=== PATIENT | female | born 1980 | race Caucasian/White ===

== ENCOUNTER 2019-10-19 14:01 | Emergency (ER) | payer OTHER ==
[~2019-10-19] VITALS: Ht 167.6 cm; Wt 85.0 kg
[~2019-10-19 14:01] MED LIST: ACET-1600 PO; ACET160T11 PO; ALBU8.5H5 INH; AMOX-291 PO; CEFU500T PO; DEXT118L3 PO; DIPH25CA61 PO; GUAI5LIQ PO; IBUP-1223 PO; LACT1CAP35 PO; LORA1TAB46 PO; ONDA4TAB10 PO; OXYC-302 PO
--- NOTE | 2019-10-19 14:07 | NUR ---
NIL X 1 @[id number]
--- NOTE | 2019-10-19 14:09 | NUR ---
PT TO TRAUMA 2 FROM TRIAGE. CHANGING INTO A GOWN.
--- NOTE | 2019-10-19 14:14 | NUR ---
MD IS AT THE BEDSIDE TO CONSULT.
[2019-10-19] MEDS ORDERED: SODIUM CHLORIDE FLUSH 10ML SYR IVF ONE (14:30)
[2019-10-19 15:05] LABS: BASOPHILS # (AUTO) 0.03 x10^3/uL (0-0.1); BASOPHILS % (AUTO) 0 % (0-1); EOSINOPHILS # (AUTO) 0.08 x10^3/uL (0-0.4); EOSINOPHILS % (AUTO) 1 % (1-7); LYMPHOCYTES % (AUTO) 21 % (22-44); MD NO; MEAN CORPUSCULAR HEMOGLOBIN 30.6 pg (27.0-34.8); MEAN CORPUSCULAR HGB CONC 33.5 g/dL (32.4-35.8); MEAN CORPUSCULAR VOLUME 91.3 fL (80-100); MEAN PLATELET VOLUME 6.7 fL (7.4-10.4); MONOCYTES # (AUTO) 0.64 x10^3/uL (0.2-0.8); MONOCYTES % (AUTO) 7 % (2-9); NEUTROPHILS # (AUTO) 6.73 x10^3/uL (1.8-6.8); NEUTROPHILS % (AUTO) 71 % (42-75); PLATELET COUNT 425 x10^3/uL (130-400); RED BLOOD COUNT 4.44 x10^6/uL (3.82-5.3)
[2019-10-19 15:17] LABS: ALBUMIN 3.3 g/dL (3.4-5.0); ANION GAP 7 mmol/L (5-15); CALCIUM 8.7 mg/dL (8.5-10.1); CHLORIDE 109 mmol/L (98-107); CREATININE 0.66 mg/dL (0.55-1.02)
--- NOTE | 2019-10-19 15:35 | NUR ---
MICHAEL (RN) IS ASSUMING CARE OF THIS PT WHILE I ENJOY A LUNCHBREAK. SBAR REPORT WAS EXCHANGED AT THE BEDSIDE.
--- NOTE | 2019-10-19 16:18 | NUR ---
ATTEMPTED TO CONTACT CT IN REGARD TO DELAY IN STUDY. NO ANSWER AT THIS TIME.
[2019-10-19] MEDS ORDERED: OMNIPAQUE 350 MG/ML, 100ML BOTTLE ONE (16:42)
--- NOTE | 2019-10-19 16:48 | NUR ---
PT TO AND FROM NM W TECH. SHE TOLERATED THE STUDY WELL.
[2019-10-19] MEDS ORDERED: KETOROLAC 30 MG/1 ML ONE (16:56)
[2019-10-19] MEDS ORDERED: KETOROLAC 30 MG/1 ML IVPush ONE (17:00)
[2019-10-19 17:23] VITALS: BP 123/78
== END 2019-10-19 17:39 | disposition home or self-care (01) ==
LOC: ED 17:33
DX: E05.00 Thyrotoxicosis with diffuse goiter without thyrotoxic crisis or storm (principal); M54.2 Cervicalgia; J45.909 Unspecified asthma, uncomplicated; R00.0 Tachycardia, unspecified
CPT/HCPCS: 36415; 70491; 80048; 82040; 84439; 84443; 84481; 85025; 93005; 96374; 99285; J1885; Q9967

== ENCOUNTER 2019-10-30 16:13 | Emergency (ER) | payer OTHER ==
[~2019-10-30] VITALS: Ht 167.6 cm; Wt 91.4 kg
--- NOTE | 2019-10-30 17:18 | NUR ---
No answer from lobby.
--- NOTE | 2019-10-30 17:47 | NUR ---
Pt to room from lobby.
--- NOTE | 2019-10-30 17:58 | NUR ---
WAS RECENTLY DIAGNOSED WITH HYPERTHYROIDISM. MY HR AND BP HAS BEEN HIGH. AT HOME LAST NIGHT HR-110 AND BP 162/115 DESPITE NEWLY PRESRIBED PROPANOLOL WAITING TO SEE SUPERVISOR PAINTING SHIPYARD
--- NOTE | 2019-10-30 18:14 | NUR ---
CXR AT BEDSIDE UA SENT ECG OBTAINED
--- NOTE | 2019-10-30 18:20 | NUR ---
METOPROLOL SUCCINATE (ER) REQUESTED FROM PHARMACY
[2019-10-30 18:22] LABS: HCG UR SG 1.019 (1.003-1.030); MICROSCOPIC NOT IND
[2019-10-30] MEDS ORDERED: METOPROLOL SUCCINATE 25 MG TAB.ER.24H PO ONE (18:30)
--- NOTE | 2019-10-30 18:40 | NUR ---
MEDICATED PER EMAR VSS ON QA REVIEWER
[2019-10-30 19:27] VITALS: BP 127/88
== END 2019-10-30 19:53 | disposition home or self-care (01) ==
LOC: ED 19:15
DX: R00.0 Tachycardia, unspecified (principal); E03.9 Hypothyroidism, unspecified; R07.9 Chest pain, unspecified
CPT/HCPCS: 71045; 81003; 81025; 93005; 99285

== ENCOUNTER → 2019-11-17 | Outpatient (CLI) | payer OTHER ==
[2019-11-17 07:58] LABS: FREE T4 (FREE THYROXINE) 2.68 ng/dL (0.76-1.46)
== END | disposition home or self-care (01) ==
LOC: LAB 07:26
PROVIDERS: ATTEND Internal Medicine
DX: R94.6 Abnormal results of thyroid function studies (principal); E06.9 Thyroiditis, unspecified
CPT/HCPCS: 36415; 84439; 84443; 84480

== ENCOUNTER → 2019-12-07 | Outpatient (CLI) | payer OTHER ==
[2019-12-07 14:34] LABS: MEAN CORPUSCULAR HGB CONC 33.4 g/dL (32.4-35.8); MEAN CORPUSCULAR VOLUME 86.9 fL (80-100); MEAN PLATELET VOLUME 6.7 fL (7.4-10.4); PLATELET COUNT 345 x10^3/uL (130-400); RED BLOOD COUNT 4.73 x10^6/uL (3.82-5.3); RED CELL DISTRIBUTION WIDTH 14.5 % (9.6-15.2)
[2019-12-07 14:46] LABS: ALBUMIN 3.7 g/dL (3.4-5.0); ANION GAP 6 mmol/L (5-15); CALCIUM 9.1 mg/dL (8.5-10.1); CHLORIDE 109 mmol/L (98-107)
[2019-12-07 14:59] LABS: ALANINE AMINOTRANSFERASE 47 U/L (12-78); ALKALINE PHOSPHATASE 72 U/L (45-117); BILIRUBIN,TOTAL 0.3 mg/dL (0.2-1.0); CREATININE 0.81 mg/dL (0.55-1.02); TOTAL PROTEIN 6.9 g/dL (6.4-8.2)
== END | disposition home or self-care (01) ==
LOC: LAB 14:20
PROVIDERS: ATTEND Internal Medicine Endocrinology, Diabetes & Metabolism
DX: Z51.81 Encounter for therapeutic drug level monitoring (principal); E05.90 Thyrotoxicosis, unspecified without thyrotoxic crisis or storm
CPT/HCPCS: 36415; 80053; 84439; 84443; 84480; 85027

== ENCOUNTER → 2020-01-25 | Outpatient (CLI) | payer OTHER ==
[2020-01-25 07:22] LABS: MEAN CORPUSCULAR HEMOGLOBIN 29.3 pg (27.0-34.8); MEAN CORPUSCULAR HGB CONC 33.1 g/dL (32.4-35.8); MEAN PLATELET VOLUME 6.4 fL (7.4-10.4); PLATELET COUNT 331 x10^3/uL (130-400); RED BLOOD COUNT 5.04 x10^6/uL (3.82-5.3); RED CELL DISTRIBUTION WIDTH 18.3 % (9.6-15.2)
[2020-01-25 07:31] LABS: ALANINE AMINOTRANSFERASE 26 U/L (12-78); ALBUMIN 3.8 g/dL (3.4-5.0); ANION GAP 6 mmol/L (5-15); CALCIUM 8.8 mg/dL (8.5-10.1); CHLORIDE 109 mmol/L (98-107); CREATININE 0.84 mg/dL (0.55-1.02)
[2020-01-25 07:41] LABS: ALKALINE PHOSPHATASE 68 U/L (45-117); BILIRUBIN,TOTAL 0.5 mg/dL (0.2-1.0); FREE T4 (FREE THYROXINE) 0.84 ng/dL (0.76-1.46); TOTAL PROTEIN 7.5 g/dL (6.4-8.2)
== END | disposition home or self-care (01) ==
LOC: LAB 07:06
PROVIDERS: ATTEND Internal Medicine Endocrinology, Diabetes & Metabolism
DX: Z51.81 Encounter for therapeutic drug level monitoring (principal); E05.90 Thyrotoxicosis, unspecified without thyrotoxic crisis or storm
CPT/HCPCS: 36415; 80053; 84439; 84443; 84480; 85027

== ENCOUNTER 2020-07-22 18:34 | Emergency (ER) | payer OTHER ==
[~2020-07-22] VITALS: Ht 165.1 cm; Wt 86.5 kg
--- NOTE | 2020-07-22 19:14 | NUR ---
Pt with left ankle pain on lateral and medial sides after tripping over dog at home. Pt to ER on crutches. Leg elevated and ice pack to foot. Warm blanket given. Will monitor.
[2020-07-22 20:28] VITALS: BP 124/76
--- NOTE | 2020-07-22 20:31 | NUR ---
Pt fitted for crutches by EMT. Kian wrap applied by EMT. Pt out of ER without difficulty on crutches. Pt has family to drive her home. Patient/Caregiver given discharge instructions and they have confirmed that they understand the instructions. Patient ambulatory with steady gait on crutches.
== END 2020-07-22 21:04 | disposition home or self-care (01) ==
LOC: ED 21:03
DX: S93.492A Sprain of other ligament of left ankle, initial encounter (principal); W01.0XXA Fall on same level from slipping, tripping and stumbling without subsequent striking against object, initial encounter; X50.0XXA Overexertion from strenuous movement or load, initial encounter; Y93.89 Activity, other specified; Y92.009 Unspecified place in unspecified non-institutional (private) residence as the place of occurrence of the external cause; Y99.8 Other external cause status
CPT/HCPCS: 99283

== ENCOUNTER → 2020-07-22 | Outpatient (CLI) | payer OTHER ==
[~2020-07-22] MED LIST changes: -OXYC-302 PO; +OXYC1TAB14 PO
[2020-07-22 08:46] LABS: ALANINE AMINOTRANSFERASE 28 U/L (12-78); ALBUMIN 3.7 g/dL (3.4-5.0); ANION GAP 7 mmol/L (5-15); CALCIUM 8.6 mg/dL (8.5-10.1); CHLORIDE 108 mmol/L (98-107)
[2020-07-22 08:48] LABS: BASOPHILS % (AUTO) 1 % (0-1); EOSINOPHILS % (AUTO) 3 % (1-7); LYMPHOCYTES % (AUTO) 32 % (22-44); MEAN CORPUSCULAR HEMOGLOBIN 31.5 pg (27.0-34.8); MEAN PLATELET VOLUME 6.9 fL (7.4-10.4); MONOCYTES % (AUTO) 6 % (2-9); NEUTROPHILS % (AUTO) 59 % (42-75); PLATELET COUNT 268 x10^3/uL (130-400)
[2020-07-22 08:50] LABS: MD NO
[2020-07-22 08:57] LABS: ALKALINE PHOSPHATASE 81 U/L (45-117); BILIRUBIN,TOTAL 0.2 mg/dL (0.2-1.0); CREATININE 0.75 mg/dL (0.55-1.02); FREE T4 (FREE THYROXINE) 0.88 ng/dL (0.76-1.46); TOTAL PROTEIN 6.8 g/dL (6.4-8.2)
== END | disposition home or self-care (01) ==
LOC: LAB 08:22
PROVIDERS: ATTEND Internal Medicine Endocrinology, Diabetes & Metabolism
DX: Z51.81 Encounter for therapeutic drug level monitoring (principal); E05.90 Thyrotoxicosis, unspecified without thyrotoxic crisis or storm
CPT/HCPCS: 36415; 80053; 84439; 84443; 84480; 85025